=== PATIENT | male | born 1940 | race Caucasian/White ===

== ENCOUNTER → 2017-07-05 | Outpatient (CLI) | payer MEDICARE, OTHER ==
[~2017-07-05] MED LIST: ASCO10004 PO; ASPI-496 PO; ATOR40TA78 PO; CHOL100012 PO; HYDR-3240 PO; KETO10TA PO; LOVA40TA2 PO; MELA1TAB6 PO; OMEG1CAP94 PO; SAW/1TAB2 PO; UBID100C24 PO; UBID1CAP43 PO; VITA1TAB3 PO; VITA400C43 PO; ZOLP-413 PO
[2017-07-05 11:55] LABS: BLOOD UREA NITROGEN 18 mg/dL (7-18)
[2017-07-05 11:58] LABS: ASPARTATE AMINO TRANSFERASE 19 U/L (15-37)
[2017-07-05 12:02] LABS: PATH.CAST-FLAG NOT PRESENT; SPERM-FLAG NOT PRESENT; SRC-FLAG NOT PRESENT; XTAL-FLAG NOT PRESENT; YLC-FLAG NOT PRESENT
== END | disposition home or self-care (01) ==
LOC: STAR 10:28
PROVIDERS: ATTEND Urology
DX: Z01.818 Encounter for other preprocedural examination (principal); N20.0 Calculus of kidney; N20.1 Calculus of ureter
CPT/HCPCS: 36415; 80053; 81001; 87086; 93005

== ENCOUNTER 2017-07-11 13:17 | Day surgery (SDC) | payer MEDICARE, OTHER ==
[2017-07-05 12:35] VITALS: BP 112/74
[~2017-07-11] VITALS: Ht 171.4 cm; Wt 79.6 kg
[~2017-07-11 13:17] MED LIST changes: -HYDR-3240 PO; -KETO10TA PO
[2017-07-11] MEDS ORDERED: LACTATED RINGERS 1,000 ML IV SCH (14:07)
[2017-07-11] MEDS ORDERED: LIDOCAINE 1%, 2ML SQ PRN (14:30)
[2017-07-11] MEDS ORDERED: FENTANYL PF 100 MCG/2ML ONE ×2 (16:47)
[2017-07-11] MEDS ORDERED: DEXAMETHASONE 4 MG/ML, 1ML ONE (16:48)
[2017-07-11] MEDS ORDERED: PROPOFOL 10 MG/ML, 20ML ONE (16:48)
[2017-07-11] MEDS ORDERED: ROCURONIUM 10 MG/ML ONE (16:48)
[2017-07-11] MEDS ORDERED: ONDANSETRON 2MG/ML, 2ML ONE (16:48)
[2017-07-11] MEDS ORDERED: SUCCINYLCHOLINE 20 MG/ML, 10ML ONE (16:48)
[2017-07-11] MEDS ORDERED: MIDAZOLAM 1 MG/ML, 2ML ONE (17:16)
[2017-07-11] MEDS ORDERED: HYDROmorphone 1 MG/ML, 1ML IV PRN (17:30)
[2017-07-11] MEDS ORDERED: OXYcodone 5 MG/5 ML ORAL.SOL UDC PO PRN (17:30)
[2017-07-11] MEDS ORDERED: HYDROcodone/APAP 7.5-325MG/15ML UDC PO PRN (17:30)
[2017-07-11] MEDS ORDERED: ONDANSETRON 2MG/ML, 2ML IVPush PRN (17:30)
[2017-07-11] MEDS ORDERED: FENTANYL PF 100 MCG/2ML IV PRN (17:30)
[2017-07-11] MEDS ORDERED: ACETAMINOPHEN 325 MG TABLET PO PRN (17:30)
[2017-07-11] MEDS ORDERED: KETOROLAC 30 MG/1 ML ONE (17:59)
[2017-07-11] MEDS ORDERED: HYDR-3240 PO (20:13)
[2017-07-11] MEDS ORDERED: KETO10TA PO (20:13)
[2017-07-11] MEDS ORDERED: ATORVASTATIN 40 MG TABLET PO SCH (21:00)
[2017-07-11] MEDS ORDERED: TEMPLATE NON-FORMULARY MED. (Ubidecarenone (Coq-10) 200 MG) PO SCH (21:00)
[2017-07-12] MEDS ORDERED: BETA PO SCH (09:00)
[2017-07-12] MEDS ORDERED: VIT E PO SCH (09:00)
[2017-07-12] MEDS ORDERED: CHOLECALCIFEROL 1,000 UNIT TABLET PO SCH (09:00)
[2017-07-12] MEDS ORDERED: PYG PO SCH (09:00)
[2017-07-12] MEDS ORDERED: ASCORBIC ACID 500 MG TABLET PO SCH (09:00)
[2017-07-12] MEDS ORDERED: VITAMIN E 400 UNITS CAPSULE PO SCH (09:00)
[2017-07-12] MEDS ORDERED: [UNRECOGNIZED DRUG - OTHER] PO SCH (09:00)
[2017-07-12] MEDS ORDERED: SOD SEL PO SCH (09:00)
[2017-07-12] MEDS ORDERED: LYC PO SCH (09:00)
[2017-07-12] MEDS ORDERED: SAW PO SCH (09:00)
== END 2017-07-11 20:30 | disposition home or self-care (01) ==
LOC: OUT 13:17 → 4NOR 19:12 → OUT 20:30
PROVIDERS: ATTEND Urology
DX: N13.2 Hydronephrosis with renal and ureteral calculous obstruction (principal); N40.0 Benign prostatic hyperplasia without lower urinary tract symptoms; E78.00 Pure hypercholesterolemia, unspecified; E78.5 Hyperlipidemia, unspecified; Z91.09 Other allergy status, other than to drugs and biological substances; Z86.73 Personal history of transient ischemic attack (TIA), and cerebral infarction without residual deficits
CPT/HCPCS: 52353; 74000; 74176; 76000; 82360; 88300; C1769; J0330; J1100; J1885; J2250; J2405; J2704; J3010; J7120